=== PATIENT | female | born 1985 | race Caucasian/White ===

== ENCOUNTER 2022-02-17 18:56 | Emergency (ER) | payer OTHER ==
[2022-02-17] MEDS ORDERED: Gabapentin 100 MG Cap PO ONE (20:40)
[2022-02-17] MEDS ORDERED: valACYclovir 1,000 MG Tab PO SCH (20:41)
== END 2022-02-17 21:16 | disposition home or self-care (01) ==
LOC: JP.ED 18:56
DX: B02.9 Zoster without complications (principal); R10.31 Right lower quadrant pain; Z88.8 Allergy status to other drugs, medicaments and biological substances; Z86.16 Personal history of COVID-19
CPT/HCPCS: 99281; 99283; A9270